=== PATIENT | female | born 1960 | race Caucasian/White ===

== ENCOUNTER → 2016-04-03 19:01 | Outpatient (CLI) | payer MEDICAID ==
[2015-07-13 07:30] VITALS: BMI 66.2
[~2016-04-03 19:01] MED LIST: HYDROCODONE-APA1 TAB PO; SINGULAIR10 MG PO; SPIRIVA18 MCG INH
== END | disposition home or self-care (01) ==
LOC: D.MAMMO 09:30
DX: R92.8 Other abnormal and inconclusive findings on diagnostic imaging of breast (principal)

== ENCOUNTER → 2016-12-20 13:41 | Outpatient (CLI) | payer MEDICAID ==
[2015-07-13 07:30] VITALS: BMI 66.2
== END | disposition home or self-care (01) ==
LOC: D.RT 13:41
DX: J45.909 Unspecified asthma, uncomplicated (principal)

== ENCOUNTER 2018-12-03 19:03 | Inpatient (IN) | payer MEDICARE, MEDICAID ==
[~2018-12-03] VITALS: Ht 160 cm; Wt 171.8 kg
[2018-12-03 19:54] LABS: APPEARANCE HAZY (CLEAR); COLOR RED (YELLOW)
[2018-12-03 19:56] LABS: SPECIFIC GRAVITY 1.025 (1.005-1.020)
[2018-12-03 19:57] LABS: BILIRUBIN NEGATIVE (NEGATIVE); GLUCOSE NEGATIVE (NEGATIVE); KETONE NEGATIVE (NEGATIVE); NITRITE NEGATIVE (NEGATIVE); PROTEIN 2+ mg/dL (NEGATIVE); UROBILINOGEN NORMAL (NORMAL)
[2018-12-03 19:58] LABS: BACTERIA FEW /hpf (NEGATIVE); EPITHELIAL CELLS OCC /hpf (0-5); RED CELLS - URINE >50 /hpf (0-5); WHITE CELLS - URINE 0-5 /hpf (NEGATIVE)
[2018-12-03 20:01] LABS: BASOPHILS 0.4 % (0-2); HEMATOCRIT 28.8 % (36.0-48.0); HEMOGLOBIN 8.3 g/dL (12-16); IMMATURE GRANULOCYTES 2.6 % (0-5); LYMPHOCYTES 9.3 % (15-50); MCH 21.7 pg (26.0-34.0); MCHC 28.8 g/dL (31.0-37.0); MCV 75.2 fL (80.0-100.0); MEAN PLATELET VOLUME 8.6 fL (7.4-10.4); MONOCYTES 6.5 % (2-11); NEUTROPHILS 80.2 % (40-80); RBC 3.83 10x6/uL (4.00-5.40); RDW 16.6 % (11.5-14.5); WBC 19.8 10x3/uL (4.8-10.8)
[2018-12-03 20:02] LABS: PLATELET COUNT 408 10x3/uL (130-400)
[2018-12-03 20:07] LABS: CALCIUM 8.8 mg/dL (8.5-10.1); CARBON DIOXIDE 25.9 mmol/L (21.0-32.0); CREATININE - SERUM 0.9 mg/dL (0.6-1.3); POTASSIUM - SERUM 3.9 mmol/L (3.5-5.1)
[2018-12-03 20:23] LABS: ALBUMIN 3.3 g/dL (3.4-5.0); BILIRUBIN - TOTAL 0.32 mg/dL (0.2-1.3); PROTEIN - SERUM 7.6 g/dL (6.4-8.2); THYROID STIMULATING HORMONE 2.73 uIU/mL (0.36-3.74)
--- NOTE | 2018-12-03 20:25 | NUR ---
PT TO RADIOLOGY AT THIS TIME.
--- NOTE | 2018-12-03 20:43 | NUR ---
PT RETURNED FROM RADIOLOGY AT THIS TIME.
[2018-12-03 21:14] LABS: % SATURATION 2 % (15-55); IRON 10 ug/dl (35-150); TOTAL IRON BIND CAPACITY 425 ug/dl (260-445); UNSAT IRON BIND CAPACITY 415 ug/dl (150-375)
--- NOTE | 2018-12-03 21:45 | NUR ---
BLOOD CONSENT FORM SIGNED BY PT
--- NOTE | 2018-12-03 23:00 | NUR ---
RECEIVED PT FROM ER VIA BED. AMBULATED TO BED WITH ASSIST X1 WITH CANE. GEN WEAKNESS NOTED. RESP EVEN AND NONLABORED. REPORTS VAG BLEEDING WITH BRIGHT RED AND DARK RED CLOTS AT TIMES. DENIES PAIN. PT IS MORBIDLY OBESE. BLISTERS/SCABS NOTED TO BLE. 3+ EDEMA NOTED TO BLE. INSTRUCTED OF NPO AFTER MIDNIGHT AND SHE VERBALIZED UNDERSTANDING. 1ST UNIT OF PRBCS TRANSFUSING AT THIS TIME IN RT AC WITHOUT DIFF. PT ACCOMPANIED BY DAUGHTER. DENIES ANY HOME MEDS BUT STATES SHE HAS BEEN TAKING IBUPROFEN AT TIMES. INSTRUCTED TO USE CALL DRUMMOND FOR ASSISTANCE WITH AMB AND SHE VERBALIZED UNDERSTANDING. SR ELVATED X2. HOB ELEVATED. CL IN REACH. ALERT AND ORIENTED X4. NO DISTRESS.
[2018-12-03 23:33] VITALS: BP 145/74; BMI 67.1
[2018-12-03 23:47] VITALS: BP 145/74
--- NOTE | 2018-12-04 00:35 | NUR ---
1ST UNIT OF PRBCS FINISHED. PT ZACHARY WELL. V/S STABLE.
--- NOTE | 2018-12-04 01:10 | NUR ---
2ND UNIT OF PRBC STARTED. V/S STABLE. WILL MONITOR FOR S/S OF ADVERSE REACTION. LASIX GIVEN PRIOR TO STARTING.
--- NOTE | 2018-12-04 01:25 | NUR ---
NO S/S OF ADVERSE REACTION TO PRBCS. V/S STABLE. WILL CONT TO MONITOR.
--- NOTE | 2018-12-04 02:00 | NUR ---
ASSISTED UP TO BR TO VOID. LARGE AMOUNT OF BLOOD CLOTS NOTED IN TOILET. PERIPAD CHANGED AT THIS TIME.
[2018-12-04 04:00] VITALS: BP 137/70
--- NOTE | 2018-12-04 04:00 | NUR ---
2ND UNIT OF PRBC FINISHED TRANSFUSING. V/S STABLE. NO DISTRESS. CL IN REACH.
[2018-12-04 05:50] LABS: BASOPHILS 0.3 % (0-2); EOSINOPHILS 1.1 % (0-7); HEMATOCRIT 29.8 % (36.0-48.0); HEMOGLOBIN 8.8 g/dL (12-16); IMMATURE GRANULOCYTES 2.8 % (0-5); LYMPHOCYTES 13.5 % (15-50); MCH 22.6 pg (26.0-34.0); MCHC 29.5 g/dL (31.0-37.0); MCV 76.6 fL (80.0-100.0); MEAN PLATELET VOLUME 8.6 fL (7.4-10.4); MONOCYTES 7.8 % (2-11); NEUTROPHILS 74.5 % (40-80); RBC 3.89 10x6/uL (4.00-5.40); RDW 17.1 % (11.5-14.5); WBC 15.9 10x3/uL (4.8-10.8)
[2018-12-04 06:48] LABS: PLATELET COUNT 320 10x3/uL (130-400)
[2018-12-04 09:22] VITALS: BP 111/69
--- NOTE | 2018-12-04 11:39 | NUR ---
PT WAITING TO BE SEEN BY MD AND IS NPO UNTIL THEN. PT WANTING TO KNOW WHEN MD WILL COME SEE HER. I STATED TO HER I WILL CALL OFFICE. PT VERBALIZED UNDERSTANDING. CALLED DR. MCNULTY OFFICE AND SPOKE WITH MOCK UP MAKER AND SHE STATED DR. ROCHA IS EXTENDER. I ASKED TO SPEAK WITH HER() OR HER NURSE AND THE MOCK UP MAKER STATED THAT I JUST NEED TO PAGE DR. ROCHA AND GAVE ME HER PAGER NUMBER [phone]. PAGED DR. ROCHA AND WILL WAIT FOR HER TO CALL MED [phone].
[2018-12-04 12:04] VITALS: BP 144/76
--- NOTE | 2018-12-04 12:04 | NUR ---
SPOKE WTIH DR. ROCHA AND SHE STATES SHE IS FINISHING UP HER CLINIC NOW AND SHE WILL COME TO SEE PT IN ABOUT A HALF AN HOUR.
[2018-12-04 14:50] VITALS: Ht 160 cm; Wt 171.8 kg
[2018-12-04 15:42] LABS: BASOPHILS 0.2 % (0-2); EOSINOPHILS 1.6 % (0-7); HEMATOCRIT 29.9 % (36.0-48.0); HEMOGLOBIN 8.9 g/dL (12-16); LYMPHOCYTES 13.2 % (15-50); MCH 22.6 pg (26.0-34.0); MCHC 29.8 g/dL (31.0-37.0); MCV 75.9 fL (80.0-100.0); MEAN PLATELET VOLUME 8.9 fL (7.4-10.4); MONOCYTES 6.7 % (2-11); NEUTROPHILS 75.3 % (40-80); PLATELET COUNT 342 10x3/uL (130-400); RBC 3.94 10x6/uL (4.00-5.40); RDW 16.9 % (11.5-14.5); WBC 13.5 10x3/uL (4.8-10.8)
--- NOTE | 2018-12-04 17:56 | MORECARE ---
CASE MANAGEMENT DISCHARGE SUMMARY PATIENT: PREM FUENTES UNIT: [id number] ADM DATE: 12/03/18 AGE: 58 : 60 SEX: F ROOM/BED: D.1210 AUTHOR: LONDONDOC PHYSICIAN: REFERRING PHYSICIAN: FERNY MCNULTY MD DATE OF SERVICE: 12/04/18 Discharge Plan Patient Name: PREM FUENTES Facility: [facility]:[place] : 1960 Planned Disposition: Anticipated Discharge Date: Discharge Date: Expected LOS: Initial Reviewer: [email or web address] Initial Review Date: 12/03/2018 Generated: 12/04/18 6:56 pm DCP- Discharge Planning Updated by [email or web address]: Anita Kennedy on 12/04/18 4:[address] Patient Name: PREM FUENTES Admission Status: ER Accout number: [id number] Admission Date: 12-03-2018 : 1960 Admission Diagnosis: Attending: Ferny Mcnulty Current LOS: 1 Anticipated DC Date: Planned Disposition: Primary Insurance: [employer] ADV Discharge Planning Comments: CM met with patient to complete initial dc planning assessment. CM educated patient on the CM role and verbal consent given by patient to complete assessment. Patient lives at home with her daughter where she is independent with her care. At discharge patient plans to return home and feels this is a safe discharge. CM discussed availability of home health, rehab services, and medical equipment. Her daughter will be her ambulette driver home. Patient denied known discharge needs at this time. CM will continue to follow and will assist as needed with dc plans/needs. Tumbling Instructor: Anita Kennedy DCPIA - Discharge Planning Initial Assessment Updated by [email or web address]: Anita Kennedy on 12/04/18 5:50 pm * Is the patient Alert and Oriented? Yes * How many steps to enter\exit or inside your home? * PCP NO PCP * Pharmacy [facility] * Preadmission Environment Home with Family * ADLs Independent * Equipment Cane * List name and contact numbers for known caregivers / representatives who currently or will assist patient after discharge: MARI FUENTES - DAUGHTER- [phone] * Verbal permission to speak to the caregivers and representatives has been obtained from the patient. Yes * Community resources currently utilized None * Additional services required to return to the preadmission environment? No * Can the patient safely return to the preadmission environment? Yes * Has this patient been hospitalized within the prior 30 days at any hospital? No External Providers External Provider: OTHER-OTHER Next Contact Date: Service Request Date: Service Type: Resolution: Reviewer: Comments: External Provider: OTHER-OTHER Next Contact Date: Service Request Date: Service Type: Resolution: Reviewer: Comments: External Provider: OTHER-OTHER Next Contact Date: Service Request Date: Service Type: Resolution: Reviewer: Comments: Patient Name: PREM FUENTES Page [id number] at 1756 All edits/amendments must be made on the electronic document DICTATION DATE: 12/04/181755 MASTER SONAR TECHNICIAN: PREET 12/04/181755 RPT#: [id number] DC DATE: STATUS: ADM IN [facility] [address] [place] [address] END OF REPORT
--- NOTE | 2018-12-04 19:45 | NUR ---
PT ALERT & ORIENTED. DENIES PAIN AT THIS TIME. ASSESSMENT COMPLETE PER FLOW-SHEET. NO NEEDS. WILL CONTINUE TO MONITOR.
[2018-12-04 19:50] VITALS: BP 151/69
[2018-12-05 00:01] VITALS: BP 131/75
[2018-12-05 04:03] VITALS: BP 146/65
--- NOTE | 2018-12-05 07:15 | NUR ---
PT RESTING IN BED, SHIFT ASSESSMENT PERFORMED. VSS AND WNL. DENIES ANY NEEDS AT THIS TIME, WILL CONT TO FOLLOW POC
[2018-12-05 07:48] VITALS: BP 147/70
[2018-12-05] MEDS ORDERED: MEGACE40 MG PO (10:53)
--- NOTE | 2018-12-05 12:00 | NUR ---
DISCHARGE INTSRUCTIONS REVIEWED WITH PT AND ALL QUESTIONS ANSWERED. PIV REMOVED WITH CATHETER TIP INTACT. PT TAKEN TO THE FRONT OF THE HOSPITAL WHERE SHE LEFT WITH FAMILY.
--- NOTE | 2018-12-05 16:44 | MORECARE ---
CASE MANAGEMENT DISCHARGE SUMMARY PATIENT: PREM FUENTES UNIT: [id number] ADM DATE: 12/05/18 AGE: 58 : 60 SEX: F ROOM/BED: D.1210 AUTHOR: ANOOP CALLAHAN PHYSICIAN: REFERRING PHYSICIAN: FERNY MCNULTY MD DATE OF SERVICE: 12/05/18 Discharge Plan Patient Name: PREM FUENTES Facility: [facility]:[place] : 1960 Planned Disposition: Anticipated Discharge Date: Discharge Date: 12/05/2018 Expected LOS: Initial Reviewer: [email or web address] Initial Review Date: 12/03/2018 Generated: 12/05/18 5:43 pm DCP- Discharge Planning Updated by [email or web address]: Anita Kennedy on 12/04/18 4:[address] Patient Name: PREM FUENTES Admission Status: ER Accout number: [id number] Admission Date: 12-03-2018 : 1960 Admission Diagnosis: Attending: Ferny Mcnulty Current LOS: 1 Anticipated DC Date: Planned Disposition: Primary [facility] Discharge Planning Comments: CM met with patient to complete initial dc planning assessment. CM educated patient on the CM role and verbal consent given by patient to complete assessment. Patient lives at home with her daughter where she is independent with her care. At discharge patient plans to return home and feels this is a safe discharge. CM discussed availability of home health, rehab services, and medical equipment. Her daughter will be her medical driver home. Patient denied known discharge needs at this time. CM will continue to follow and will assist as needed with dc plans/needs. Mud Analysis Supervisor: Anita Kennedy DCPIA - Discharge Planning Initial Assessment Updated by [email or web address]: Anita Kennedy on 12/04/18 5:50 pm * Is the patient Alert and Oriented? Yes * How many steps to enter\exit or inside your home? * PCP NO PCP * Pharmacy [facility] * Preadmission Environment Home with Family * ADLs Independent * Equipment Cane * List name and contact numbers for known caregivers / representatives who currently or will assist patient after discharge: MARI FUENTES - DAUGHTER- [phone] * Verbal permission to speak to the caregivers and representatives has been obtained from the patient. Yes * Community resources currently utilized None * Additional services required to return to the preadmission environment? No * Can the patient safely return to the preadmission environment? Yes * Has this patient been hospitalized within the prior 30 days at any hospital? No Coverage Notice Reviewer: [email or web address] Placido Kennedy Notice Issued Date-Time: 12/04/2018 18:15 Notice Type: Medicare Outpatient Observation Notice Notice Delivered To: Patient Relationship to Patient: Self Spun Paste Machine Operator Name: Delivery Method: HAND - Hand Delivered Araceli Days: Prior Verbal Notification: Recipient Understood Notice: Yes Recipient Signature: Yes Med Rec Note Co-signed by Attending: Coverage Notice Comment: Last DP export: 12/04/18 4:56 Patient Name: PREM FUENTES Page 14164 at 1644 All edits/amendments must be made on the electronic document DICTATION DATE: 12/05/181642 MONOTYPE MECHANIC: PREET 12/05/181642 RPT#: [id number] DC DATE:12/05/18 STATUS: DIS IN [facility] [address] [place] [address] END OF REPORT
== END 2018-12-05 12:51 | DRG 760 ==
LOC: D.ER 19:03 → OBSVTIME 20:59 → D.M3 20:59
PROVIDERS: Emergency Medicine; Student in an Organized Health Care Education/Training Program; ADMIT Obstetrics & Gynecology; ATTEND Obstetrics & Gynecology
DX: N95.0 Postmenopausal bleeding (principal); J18.9 Pneumonia, unspecified organism; N39.0 Urinary tract infection, site not specified; Z68.44 Body mass index [BMI] 60.0-69.9, adult; C55 Malignant neoplasm of uterus, part unspecified; D50.9 Iron deficiency anemia, unspecified; J45.909 Unspecified asthma, uncomplicated; I87.8 Other specified disorders of veins; E66.01 Morbid (severe) obesity due to excess calories; F32.9 Major depressive disorder, single episode, unspecified